=== PATIENT | female | born 1980 | race Hispanic/Latino ===

== ENCOUNTER 2018-11-13 18:54 | Emergency (ER) | payer SELFPAY ==
[~2018-11-13] VITALS: Ht 154.9 cm; Wt 53.1 kg
--- OUTSIDE RECORDS SUMMARY | 2018-11-13 18:57 | XMS REPORT ---
Author Author Kvng Zheng Organization [employer] Address Unknown Phone Unavailable Care Team Providers Care Budget Director Name Role Phone Kvng Zheng CP Unavailable Allergies No Known Allergies Problems Problem Type Condition Code Onset Dates Condition Status Problem Rheumatoid arthritis M06.9 Active Problem Long-term use of high-risk medication Z79.899 Active Medications No Known Medications Results No Known Results Summary Purpose eClinicalWorks Submission
--- OUTSIDE RECORDS SUMMARY | 2018-11-13 18:57 | XMS REPORT ---
Author Author Mat Fish [facility] e[employer] Address Unknown Phone Unavailable Care Team Providers Care Logging Operations Inspector Name Role Phone Mat Fish Unavailable Allergies No Known Allergies Problems Problem Type Condition Code Onset Dates Condition Status Problem Rheumatoid arthritis M06.9 Active Medications No Known Medications Results No Known Results Summary Purpose eClinicalWorks Submission
--- OUTSIDE RECORDS SUMMARY | 2018-11-13 18:57 | XMS REPORT ---
Author Author [facility] Address Unknown Phone Unavailable Care Team Providers Care Nautical Instrument Mechanic Name Role Phone Unavailable Unavailable Problems This patient has no known problems. Allergies, Adverse Reactions, Alerts This patient has no known allergies or adverse reactions. Medications This patient has no known medications. Results Test Description Test Time Test Comments Text Results Atomic Results Result Comments - XR CHEST 1 V 2018-11-12 21:10:00 FAX: Charli Altamirano MD [phone] [place]: St: DEP Name: ALTAGRACIA LESLIE [facility] : 1980 Age/S: 38/F [address] [place] [address] Unit #: [id number] Loc: [place] [address] Phys: Charli Altamirano MD Acct: [id number] Dis Date: Status: DEP ER PHONE #: [phone] Exam Date: 11/12/20182103 FAX #: [phone] Reason: Chest Pain EXAMS: CPT CODE: [id number] XR CHEST 1 V 12313 PROCEDURE: - XR CHEST 1 V INDICATION: 38 years Female, Chest Pain. COMPARISON: None. FINDINGS: The cardiac silhouette and pulmonary vasculature are normal for projection and degree of inspiration. No lobar consolidation, effusion, or pneumothorax. No pleural abnormalities are seen. No acute bony abnormalities. IMPRESSION: No acute intrathoracic abnormalities. SL: HARSH at 2110 Reported and signed by: Shon Anne M.D. CC: Charli Altamirano MD Technologist: BIANCA Jaquez RT(R); Sherley Friend RT(R) Trnscrd Date/Time/By: 11/12/2018 (2109) : By: [email or web address] Orig Print D/T: S: 11/12/2018 (2112) PAGE 1 Signed Report
--- OUTSIDE RECORDS SUMMARY | 2018-11-13 18:57 | XMS REPORT ---
Author Author Kvng Zheng Organization [employer] Address Unknown Phone Unavailable Care Team Providers Care [employer]p [employer] Name Role Phone Kvng Zheng CP Unavailable Allergies No Known Allergies Problems No Known Problems Medications No Known Medications Results No Known Results Summary Purpose eClinicalWorks Submission
--- OUTSIDE RECORDS SUMMARY | 2018-11-13 18:57 | XMS REPORT ---
Author Author Mat Fish [facility] eClinicalWorks Address Unknown Phone Unavailable Care Team Providers Care Cushion Assembler Name Role Phone Mat Fish Unavailable Allergies No Known Allergies Problems No Known Problems Medications No Known Medications Results No Known Results Summary Purpose eClinicalWorks Submission
--- OUTSIDE RECORDS SUMMARY | 2018-11-13 18:57 | XMS REPORT ---
Author Author Mat Fish Organization [employer] Address Unknown Phone Unavailable Care Team Providers Care Splitter Operator Name Role Phone Mat Fish Unavailable Allergies, Adverse Reactions, Alerts Substance Reaction Event Type Shrimp Info Not Available Non Drug Allergy Problems Problem Type Condition Code Onset Dates Condition Status Assessment Joint pain M25.50 Active Medications Medication Code System Code Instructions Start Date End Date Status Dosage Iron [facility] [address]-71 65 MG Orally Once a day Active 1 tablet Ketorolac Tromethamine [facility] 52389043543 10 MG Orally every 6 hrs May 25, 2018 Inactive 1 tablet with food or milk as needed Meloxicam [facility] 82918333464 15 MG Orally Once a day May 25, 2018 Active 1 tablet Vital Signs Date/Time: May 25, 2018 BMI 25.00 Index Weight 128 lbs Height 60 in Temperature 98.9 F Cardiac Monitoring Heart Rate 68 /min Blood Pressure Diastolic 52 mm Hg Blood Pressure Systolic 78 mm Hg Results No Known Results Summary Purpose eClinicalWorks Submission
--- OUTSIDE RECORDS SUMMARY | 2018-11-13 18:57 | XMS REPORT ---
Author Author Kvng Zheng Organization [employer] Address Unknown Phone Unavailable Care Team Providers Care Community Mental Health Worker Name Role Phone Kvng Zheng CP Unavailable Allergies, Adverse Reactions, Alerts Substance Reaction Event Type Shrimp Info Not Available Non Drug Allergy Problems Problem Type Condition Code Onset Dates Condition Status Problem Rheumatoid arthritis M06.9 Active Problem Long-term use of high-risk medication Z79.899 Active Assessment Rheumatoid arthritis M06.9 Active Assessment Long-term use of high-risk medication Z79.899 Active Medications Medication Code System Code Instructions Start Date End Date Status Dosage Iron [facility] [address]-95 65 MG Orally Once a day Active 1 tablet Meloxicam [facility] 65991904507 15 MG Orally Once a day with food as needed for pain Oct 27, 2018 January 25, 2019 Active 1 tablet Hydroxychloroquine Sulfate [facility] 06066078862 200 MG Orally twice a day Aug 07, 2018 Apr 25, 2019 Active 1 tablet with food or milk Vitamin B-12 [facility] [address]00 1000 MCG/15ML Orally every 2 weeks Active 15 ml Meloxicam [facility] 43855492955 15 MG Orally Once a day May 25, 2018 Active 1 tablet Vital Signs Date/Time: Oct 27, 2018 BMI 24.31 Index Weight 124.47 lbs Height 60 in Temperature 97.7 F Cardiac Monitoring Heart Rate 68 /min Blood Pressure Diastolic 52 mm Hg Blood Pressure Systolic 80 mm Hg Results No Known Results Summary Purpose eClinicalWorks Submission
--- OUTSIDE RECORDS SUMMARY | 2018-11-13 18:57 | XMS REPORT | Continuity of Care Document ---
Author Author [facility] Address Unknown Phone Unavailable Problems Problem Status Onset Date Classification Date Reported Comments Source Rheumatoid arthritis Active Problem 11/04/2018 Isma Zheng Long-term use of high-risk medication Active Problem 11/04/2018 Isma Zheng Joint pain Active Diagnosis 06/01/2018 Isma Zheng Medications Medication Details Route Status Patient Instructions Ordering Provider Order Date Source Meloxicam 1 tablet Orally Active 15 MG Orally Once a day with food as needed for pain Zheng 10/27/2018 Isma Zheng Hydroxychloroquine Sulfate 1 tablet with food or milk Orally Active 200 MG Orally twice a day [place] 08/07/2018 Isma Zheng Hydroxychloroquine Sulfate 1 tablet with food or milk Orally Active 200 MG Orally twice a day [place] 05/30/2018 Isma Zheng Ketorolac Tromethamine 1 tablet with food or milk as needed Orally Active 10 MG Orally every 6 hrs [place] 05/25/2018 Isma Zheng Meloxicam 1 tablet Orally Active 15 MG Orally Once a day [place] 05/25/2018 Isma Zheng Iron 1 tablet Orally Active 65 MG Orally Once a day [place] Isma Zheng Vitamin B-12 15 ml Orally Active 1000 MCG/15ML Orally every 2 weeks [place] Isma Zheng Allergies, Adverse Reactions, Alerts Substance Category Reaction Severity Reaction type Status Date Reported Comments Source Shrimp Adverse Reaction Info Not Available Adverse Reaction Active 10/27/2018 Isma Zheng Immunizations Immunization Date Given Site Status Last Updated Comments Source Results Order Name Results Value Reference Range Date Interpretation Comments Source Vital Signs Vital Sign Value Date Comments Source Weight 124.47 10/27/2018 Isma Zheng Height 60 10/27/2018 Isma Zheng Temperature Oral (F) 97.7 F 10/27/2018 Ismaanna Zheng Heart Rate 68 10/27/2018 Isma Zheng Diastolic (mm Hg) 52 10/27/2018 Isma Zheng Systolic (mm Hg) 80 10/27/2018 Isma Zheng Weight 122.5 06/22/2018 Isma Zheng Height 60 06/22/2018 Isma Zheng Temperature Oral (F) 97.2 F 06/22/2018 Isma Zheng Heart Rate 70 06/22/2018 Isma Zheng Diastolic (mm Hg) 62 06/22/2018 Isma Zheng Systolic (mm Hg) 98 06/22/2018 Isma Zheng Weight 128 05/25/2018 Isma Zheng Height 60 05/25/2018 Isma Zheng Temperature Oral (F) 98.9 F 05/25/2018 Isma Zheng Heart Rate 68 05/25/2018 Isma Zheng Diastolic (mm Hg) 52 05/25/2018 Isma Zheng Systolic (mm Hg) 78 05/25/2018 Isma Zheng Encounters Location Location Details Encounter Type Encounter Number Reason For Visit Attending Provider ADM Date DC Date Status Source Procedures Procedure Code Date Perfomer Comments Source
--- OUTSIDE RECORDS SUMMARY | 2018-11-13 18:57 | XMS REPORT ---
Author Kvng Denny Organization [employer] Address Unknown Phone Unavailable Care Team Providers Care Pellet Preparation Operator Name Role Phone Kvng Zheng CP Unavailable Allergies No Known Allergies Problems Problem Type Condition Code Onset Dates Condition Status Problem Rheumatoid arthritis M06.9 Active Medications No Known Medications Results No Known Results Summary Purpose eClinicalWorks Submission
--- OUTSIDE RECORDS SUMMARY | 2018-11-13 18:57 | XMS REPORT ---
Author Author Mat Fish Organization [employer] Address Unknown Phone Unavailable Care Team Providers Care Home Health Attendant Name Role Phone Mat Fish CP Unavailable Allergies, Adverse Reactions, Alerts Substance Reaction Event Type Shrimp Info Not Available Non Drug Allergy Problems Problem Type Condition Code Onset Dates Condition Status Assessment Rheumatoid arthritis M06.9 Active Problem Rheumatoid arthritis M06.9 Active Medications Medication Code System Code Instructions Start Date End Date Status Dosage Iron [facility] [address]-86 65 MG Orally Once a day Active 1 tablet Hydroxychloroquine Sulfate [facility] 13653588683 200 MG Orally twice a day May 30, 2018 Active 1 tablet with food or milk Meloxicam [facility] 11773832284 15 MG Orally Once a day May 25, 2018 Active 1 tablet Vital Signs Date/Time: Jun 22, 2018 BMI 23.92 Index Weight 122.5 lbs Height 60 in Temperature 97.2 F Cardiac Monitoring Heart Rate 70 /min Blood Pressure Diastolic 62 mm Hg Blood Pressure Systolic 98 mm Hg Results No Known Results Summary Purpose eClinicalWorks Submission
--- OUTSIDE RECORDS SUMMARY | 2018-11-13 18:57 | XMS REPORT ---
Author Author Mat Fish Organization [employer] Address Unknown Phone Unavailable Care Team Providers Care Chef Under Name Role Phone Mat Fish Unavailable Allergies No Known Allergies Problems Problem Type Condition Code Onset Dates Condition Status Problem Rheumatoid arthritis M06.9 Active Medications Medication Code System Code Instructions Start Date End Date Status Dosage Hydroxychloroquine Sulfate [facility] 78351790210 200 MG Orally TID Aug 07, 2018 Active 1 tablet with food or milk Results No Known Results Summary Purpose eClinicalWorks Submission
--- NOTE | 2018-11-13 20:12 | Diagnostic Imaging Report ---
History: Passing out Comparison studies: None Technique: Axial images were obtained from the skull base to the vertex. Coronal and sagittal reconstructions obtained from the axial data. Dose modulation, iterative reconstruction, and/or weight based adjustment of the mA/kV was utilized to reduce the radiation dose to as low as reasonably achievable. Findings: Scalp/skull: No abnormalities. No fractures, blastic or lytic lesions. Extra-axial spaces: No masses. No fluid collections. Brain sulci: Appropriate for age. Ventricles: Normal in size and configuration. No hydrocephalus. Parenchyma: No abnormal densities. No masses, hemorrhage, acute or chronic cortical vascular insults. Sellar/suprasellar region: No abnormalities Craniocervical junction: Patent foramen magnum. No Chiari one malformation. IMPRESSION: No abnormalities. Signed by: Dr. Dennis Bryant M.D. on 11/13/2018 8:08 PM
== END 2018-11-13 21:00 | disposition home or self-care (01) ==
LOC: FSED 18:54
DX: R07.89 Other chest pain (principal); M06.9 Rheumatoid arthritis, unspecified
CPT/HCPCS: 36415; 70450; 80307; 82553; 84484; 85379; 85651; 93005; 99283

== ENCOUNTER 2019-06-08 12:33 | Emergency (ER) | payer BC ==
[~2019-06-08] VITALS: Ht 154.9 cm; Wt 52.6 kg
[2019-06-08 14:14] VITALS: BP 107/69
== END 2019-06-08 14:30 | disposition home or self-care (01) ==
LOC: FSED 12:33
DX: M79.662 Pain in left lower leg (principal)
CPT/HCPCS: 85025; 85379; 99283

== ENCOUNTER → 2019-08-17 | Day surgery (SDC) | payer BC ==
[~2019-08-17] MED LIST: CBD OIL PO; IRON PO; MULTIVITAMINS1 EAC7 PO; ONDANSETRON PO; PROPOFOL IV EMULSION 10 MG/ML 50 ML VIAL ONE; VITAMIN B12 INJ
[2019-08-17 17:00] VITALS: BP 97/62
--- NOTE | 2019-08-17 23:44 | Operative Report ---
DATE OF PROCEDURE: 08/17/2019 SURGEON: Geovanni Smith MD PROCEDURE: EGD with biopsies. INDICATION FOR EGD: History of heartburn, bloating, nausea. MEDICATIONS: The patient was done under MAC, please see anesthesiologist's note. PROCEDURE IN DETAIL: With the patient in left lateral decubitus position, a flexible fiberoptic Olympus gastroscope was introduced into the esophagus under direct visualization without any difficulty. There was some patchy erythema noted in distal esophagus. The GE junction was somewhat nodular and that was biopsied. The scope was then advanced with ease into the stomach. Mucosa overlying the antrum and the body revealed some patchy erythema and [id number] edema and biopsies were obtained and sent to stain for H pylori. The pylorus was of normal contour and shape, was intubated with ease and the scope was advanced all the way to the second portion of the duodenum. Biopsies were obtained from the proximal second portion and the duodenal bulb to rule out sprue. The scope was then withdrawn back into the stomach and retroflexed. The mucosa overlying the fundus and cardia appeared to be within normal limits. The scope was then straightened out, it was subsequently withdrawn. The patient tolerated procedure well. IMPRESSION: 1. Distal esophagitis, mild. 2. GE junction somewhat nodular, biopsied. 3. Gastritis, biopsied, biopsies sent to stain for Helicobacter pylori. 4. Rule out sprue. PLAN: Follow up histology. Initiate Protonix 40 mg 1 p.o. q.a.m. before meals. Geovanni Smith MD [facility] /[id number] cc: Ricardo Raymond MD
== END | disposition home or self-care (01) ==
LOC: OR 08:47
PROVIDERS: ATTEND Internal Medicine Gastroenterology
DX: Z09 Encounter for follow-up examination after completed treatment for conditions other than malignant neoplasm (principal); K29.50 Unspecified chronic gastritis without bleeding; K20.9 Esophagitis, unspecified; D64.89 Other specified anemias; G47.33 Obstructive sleep apnea (adult) (pediatric); M06.9 Rheumatoid arthritis, unspecified; Z91.041 Radiographic dye allergy status
CPT/HCPCS: 43239; 81025; J2704